=== PATIENT | male | born 1980 | race Caucasian/White ===

== ENCOUNTER 2018-02-06 15:49 | Emergency (ER) | payer OTHER ==
[~2018-02-06] VITALS: Ht 177.8 cm; Wt 70.3 kg
[~2018-02-06 15:49] MED LIST: AMOX500 PO; HYDACE5 PO; OXYACE5T PO; PROM25 PO; SULTRIDS PO
[2018-02-06] MEDS ORDERED: DANA200 PO ×2 (16:11→17:26)
[2018-02-06] MEDS ORDERED: BENADRYL25 MG PO (17:26)
[2018-02-06] MEDS ORDERED: Prednisone20 MG PO (17:26)
== END 2018-02-06 17:52 | disposition home or self-care (01) ==
LOC: ER 15:49
DX: T78.3XXA Angioneurotic edema, initial encounter (principal); Z79.899 Other long term (current) drug therapy
CPT/HCPCS: 99283; Q0163